=== PATIENT | female | born 1995 | race Two or more races ===

== ENCOUNTER 2022-04-01 10:20 | Emergency (ER) | payer MEDICAID, OTHER ==
[~2022-04-01] VITALS: Ht 170.2 cm; Wt 111.8 kg
[2022-04-01 10:36] VITALS: BP 127/65
[2022-04-01 11:05] LABS: Hematocrit 38.6 % (36.0-46.0); Mean Corpuscular Hgb Conc. 33.6 g/dL (32.0-36.0)
[2022-04-01 11:07] LABS: Basophils # (auto) 0.1 10 ^3/uL (0-0.2); Basophils % (auto) 0.7 % (0.0-2.0); Eosinophils # (auto) 0 10 ^3/uL (0-0.8); Eosinophils % (auto) 0.5 % (0.0-7.0); Lymphocytes # (auto) 1.6 10 ^3/uL (0.4-5.4); Lymphocytes % (auto) 16.9 % (10.0-50.0); Mean Corpuscular Hemoglobin 26.9 pg (28.0-32.0); Monocytes # (auto) 0.9 10 ^3/uL (0-1.3); Monocytes % (auto) 9.1 % (0.0-12.0); Neutrophils # (auto) 6.9 10 ^3/uL (1.6-8.6); Neutrophils % (auto) 72.8 % (37.0-80.0); Nucleated Red Blood Cells % 0.1 %; Red Blood Cells 4.83 10^6/uL (4.0-5.20); Red Cell Distribution Width 13.9 % (11.8-14.3); White Blood Cell 9.4 10^3/uL (4.4-10.8)
[2022-04-01 11:20] LABS: Albumin 3.9 g/dL (3.4-5.0); Calcium 9.5 mg/dL (8.5-10.1); Potassium 3.7 mmol/L (3.5-5.1)
[2022-04-01 11:23] LABS: BUN/Creatinine Ratio 9.4; Bilirubin, Total 0.5 mg/dL (0.2-1.0); Total Protein 7.6 g/dL (6.4-8.2)
[2022-04-01] MEDS ORDERED: SODIUM CHLORIDE 0.9% 1,000 ML IV ONE (11:30)
[2022-04-01] MEDS ORDERED: PROMETHAZINE HCL 25 MG/ML 1ML IV ONE (11:30)
== END 2022-04-01 13:46 | disposition home or self-care (01) ==
LOC: ER 10:20
DX: O21.8 Other vomiting complicating pregnancy (principal); Z3A.01 Less than 8 weeks gestation of pregnancy
CPT/HCPCS: 36415; 76801; 80053; 84702; 85025; 96361; 96374; 99284; J2550; J7030